=== PATIENT | female | born 1980 | race African-American/Black ===

== ENCOUNTER 2021-05-01 16:43 | Outpatient (CLI) | payer OTHER, SELFPAY ==
[2021-05-01 17:17] LABS: Basophils Percent Auto 0.5 % (0.2-1.2); Eosinophils Absolute Auto 0.2 K/mm3 (0-0.3); Eosinophils Percent Auto 3.5 % (0-4.4); Hematocrit 38.5 % (37.0-47.0); Immature Granulocyte Absolute 0.01 K/mm3 (0.00-0.031); Immature Granulocyte Percent A 0.2 % (0-0.5); Lymphocytes Absolute Auto 2.25 K/mm3 (0.9-3.2); Lymphocytes Percent Auto 39.3 % (18.3-44.2); Mean Corpuscular HGB Conc 28.6 g/dl (32-36); Mean Corpuscular Hemoglobin 23.1 pg (26-34); Mean Corpuscular Volume 80.9 fl (80-100); Mean Platelet Volume 9.4 fl (7.4-10.4); Monocytes Absolute Auto 0.4 K/mm3 (0.1-0.6); Monocytes Percent Auto 6.1 % (2.6-8.5); Neutrophils Absolute Auto 2.9 K/mm3 (1.3-6.7); Neutrophils Percent Auto 50.4 % (45.5-73.1); Platelet Count Result 266 k/mm3 (150-375); Red Blood Count 4.76 M/mm3 (4.2-5.4); Red Cell Distribution Width 20.2 % (11.5-14.5); White Blood Count 5.7 K/mm3 (4.5-10.0)
[2021-05-01 19:00] LABS: Alanine Aminotransferase 13 U/L (4-35); Albumin Level 4.2 g/dL (3.5-5.1); Alkaline Phosphatase 63 U/L (38-126); Anion Gap 9 mmol/L (8-16); Aspartate Amino Transferase 24 U/L (14-36); Bilirubin,Total 0.5 mg/dL (0.2-1.3); Blood Urea Nitrogen 12 mg/dL (7-17); Calcium 9.6 mg/dL (8.4-10.2); Carbon Dioxide 23 mmol/L (22-30); Chloride 105 mmol/L (98-107); Estimated Glomerular Filt Rate > 60; Glucose 86 mg/dL (65-105); Potassium 3.7 mmol/L (3.4-5.0); Sodium 137 mmol/L (137-145)
[2021-05-01 19:12] LABS: Transferrin 315 mg/dL (206-381)
[2021-05-01 19:55] LABS: Iron 27 ug/dL (37-170)
[2021-05-01 20:04] LABS: Percent Iron Saturation 7 % (20-50)
[2021-05-01 20:08] LABS: Folic Acid 16.3 ng/mL (2.76->20)
== END 2021-05-01 16:44 | disposition home or self-care (01) ==
PROVIDERS: PCP Nurse Practitioner Family; Visit Provider Internal Medicine Hematology & Oncology
DX: D50.0 Iron deficiency anemia secondary to blood loss (chronic) (principal)
CPT/HCPCS: 36415; 80053; 82607; 82728; 82746; 83540; 83550; 84466; 85025

== ENCOUNTER 2022-06-07 08:19 | Outpatient (CLI) | payer OTHER, SELFPAY ==
[2022-06-07 08:35] LABS: Hematocrit 30.3 % (37.0-47.0); Hemoglobin 8.1 g/dL (12.0-15.0)
== END 2022-06-07 08:20 | disposition home or self-care (01) ==
LOC: ANHLAB 08:21
PROVIDERS: Visit Provider Anesthesiology
DX: N93.9 Abnormal uterine and vaginal bleeding, unspecified (principal); D64.9 Anemia, unspecified; Z01.818 Encounter for other preprocedural examination
CPT/HCPCS: 36415; 85014; 85018; 86850; 86900; 86901

== ENCOUNTER 2022-06-09 01:40 | Day surgery (SDC) | payer OTHER, SELFPAY ==
[2022-06-03 17:02] VITALS: BMI 33.9
--- NOTE | 2022-06-03 17:35 | PC.NURSE ---
Report to the Outpatient Waiting Room, entrance under the green pavilion located off [facility], at 0600 on 06-09-22. OR Time: 0730. - You and your visitor will be asked to self-screen and do not enter if you have any COVID symptoms. - Only one visitor and NO children visitors are allowed at this time. - The patient visitor is requested to leave or wait in car when not with patient due to restrictions. - A mask is required within the hospital. Patients may have clear liquids (water, carbonated beverages, clear teas, apple juice) until 3 hours prior to surgery with a maximum of 20 ounces. 0430 - No food from midnight until time of surgery - Infants may have breast milk until 4 hours before surgery, formula 6 hours prior to surgery. - Children will be allowed to drink immediately following surgery. If applicable, please bring a bottle or sippy cup to assist with drinking. Juice, water, soda, and popsicles are readily available. For infants on formula, please bring formula the day of surgery. Pacifiers are allowed. Take the following medications with a SIP of water the morning of surgery: iron, control Medications to discontinue per physician: N/A Please no make-up, nail kazakh, hairspray, perfume, deodorant, or body powder the day of surgery. No jewelry (including any body piercings) or valuables the day of surgery, leave them at home. Please take a shower or bath the night before, or the morning of, surgery with an antibacterial soap. Wear comfortable, loose fitting clothing. Children are encouraged to wear pajamas. - Jewelry must be removed prior to entering the operating room. Rings and piercings that are not removed may be cut off. - The hospital will not accept responsibility for valuables. - Please leave all valuables, including medications, at home the day of surgery. If you are going home after surgery, a licensed emergency detail driver must drive you home. - NO public transportation without another adult. - We recommend that an adult stay with you for 24 hours following discharge. - We also recommend that you do not drive, make important decision, drink alcoholic beverages, or take any drugs that were not prescribed by your health care provider for at least 24 hours after your discharge time. For Pediatric surgeries, we recommend two adults accompany the child home (only one inside the building at this time). Follow any additional instructions given to you from your surgeon. If you or anyone in your household have experienced Covid symptoms in the past week, please notify your surgeon or the nurse liaison at the phone number below for possible testing. Telephone instructions given to Tish Hurtado and asked if any additional questions and then verbalized understanding. Patient advised to call surgeon office or pre surgery nurse liaison [phone] if any additional questions.
--- NOTE | 2022-06-08 19:05 | PM.IMHP ---
H&P: HPI History of Present Illness Date/Time: 06/08/22 19:05 Chief Complaint: Abnormal uterine bleeding Narrative: Tish is a 40yo [id number], who presents for scheduled hysterectomy. Her pap was NILM/HPV neg 05/2022. She had a HSC/D&C 02/2021 (benign path). She had an IUD but it was expelled. She tried DIA's but that made her have headaches and vision changes. She has most recently been on depo-provera and has had 2 shots (last Nov 2021); was due for her 3rd but did not take it because she has nonstop bleeding with passage of quarter sized clots. Throughout this, she has intermittently taken provera (still taking), which has helped to slow the bleeding. But she continues to be anemic (almost required blood transfusion in 2020 due to hgb of 7), her most recent is 11. She has been having cramping on and off and it it interfering with her life and work. She has a h/o BTL and no longer desires to try medical management as nothing has worked for the last 1.5years. She does continue to take iron daily. Review of Systems Review of Systems: All systems reviewed & are unremarkable except as noted in HPI and below PMFSH Past Medical History Medical History Irregular heart beat Irregular periods Surgical History Surgical History H/O gynecological procedure tubal 2007 [facility] D&C -2020 Family History Family History Other Congestive heart disease Social History Social History Smoking status: Never smoker Second hand tobacco smoke exposure: No Alcohol intake: current Alcohol use details: occasionally Substance use: never Substance use type: does not use Gender identity (if verbalized by the patient): Female Spiritual care concerns: No Meds Home Medications and Allergies Home Medications Medication Instructions Recorded Confirmed Type medroxyprogesterone 10 mg tablet 10 mg PO BID 05/29/22 06/03/22 History (Provera) ferrous sulfate 325 mg (65 mg 325 mg PO BID 06/03/22 06/03/22 History iron) tablet (FeroSul) Allergies Allergy/AdvReac Type Severity Reaction Status Date / Time No Known Allergies Allergy Verified 06/03/22 16:59 Exam Const: General: cooperative, comfortable and no acute distress Nutritional Appearance: obese Resp: Effort & Inspection: normal respiratory effort Cardio: Rate: regular rate GI: Inspection: normal to inspection GI Palp: No abdominal tenderness and Yes Soft to palpation : Other: deferred to OR Skin: General skin exam: normal color Neuro: General: patient oriented x3 Extrem: General: normal to inspection Psych: Appearance: grossly normal Affect: normal affect Attitude: cooperative Assessment and Plan Assessment and plan (1) Abnormal uterine bleeding: Code(s): N93.9 - Abnormal uterine and vaginal bleeding, unspecified Status: Acute Assessment and Plan: - Endometrial sampling and pap normal and UTD - Pt has failed medical management - Proceed with robotic assisted total laparoscopic hysterectomy, bilateral salpingectomy, with cystoscopy - Risks and benefits explained in detail and all questions answered
[2022-06-09] VITALS (10 sets, daily range): BP systolic 121–158; BP diastolic 76–98; PULSE 60–82; RESP 14–27; TEMP 36.2–37.6; O2SAT 94–100
[2022-06-09] MEDS: LACTATED RINGERS 1,000 ML 30 ML IV CONT ×2 (06:40→09:28)
--- NOTE | 2022-06-09 06:43 | P.PNAN_ITS ---
Anes - Initial Pre Proc Eval Procedure: Operation Date: 06/09/22 07:30 Proposed Procedures p Robotic Assisted Total Laparoscopic Hysterectomy - Manuela Lainez MD Date/Time: 06/09/22 06:43 Surgeon: Manuela Lainez MD Pre Op Diagnosis: Abnormal uterine bleeding Patient Data Age: 41 Gender: F Height: 1.83 m Weight: 113.4 kg Allergies Allergy/AdvReac Type Severity Reaction Status Date / Time No Known Allergies Allergy Verified 06/09/22 06:16 Home Medications Medication Instructions Recorded Confirmed Type medroxyprogesterone 10 mg tablet 10 mg PO BID 05/29/22 06/09/22 History (Provera) ferrous sulfate 325 mg (65 mg 325 mg PO BID 06/03/22 06/09/22 History iron) tablet (FeroSul) Patient hx anesthesia problems: none Family hx anesthesia problems: none Results Review: All pre-operative results and documents have been reviewed as part of the pre- operative evaluation. [facility] Past Medical History Medical History Irregular heart beat Irregular periods Surgical History Surgical History [facility] Family History Family History Other Congestive heart disease Social History Social History Smoking status: Never smoker Second hand tobacco smoke exposure: No Alcohol intake: never Alcohol use details: occasionally Substance use: never Substance use type: does not use Living arrangements: with family Gender identity (if verbalized by the patient): Female Spiritual care concerns: No Anes - Eval Final PreProcedure Day of Procedure 06/09/22 06:43 Patient weight: obese Heart: regular rate and rhythm Lungs: clear to auscultation Airway: Mallampati scale class II Neurological: alert and oriented Last oral intake: >/= 8 hours ASA classification: II Emergent: no Anesthetic plan: proceed Anesthesia type and monitoring: general ETT and standard monitoring Results Review: All pre-operative results and documents have been reviewed as part of the pre- operative evaluation. Informed Consent: The patient's anesthetic plan and its attendant risks and benefits were discussed with the patient/family/POA. Questions were solicited and answers provided to the satisfaction of the patient/family/POA.
--- NOTE | 2022-06-09 07:04 | WPDHPUPDATE1 ---
History and Physical Update Update Date/Time: 06/09/22 07:04 History and Physical has been reviewed, including an updated exam of the patient. There are NO changes in the patient's condition. Risks, benefits, and alternatives have been discussed and questions answered. Patient agrees to proceed with procedure.
[2022-06-09] MEDS: ACETAMINOPHEN 500 MG TABLET 1000 MG PO ×2 (07:16→20:49)
[2022-06-09] MEDS: KETOROLAC 15 MG/ML VIAL (*BKC) IV PUSH (07:20)
[2022-06-09] MEDS: ceFAZolin 2 GM/D5W 50 ML 2 GM/50 ML BAG IVPB (07:29)
[2022-06-09] MEDS: LIDO 1%/EPINEPHRINE 1:100,000 50 ML VIAL 30 ML INFILTRATE (08:09)
--- NOTE | 2022-06-09 09:19 | W.PM.PROC2 ---
Procedure Note - Detailed Date of Procedure 06/09/22 Pre-op Diagnosis Abnormal uterine bleeding Post-op Diagnosis Same Procedure Performed Robotic assisted total laparoscopic hysterectomy with bilateral salpingectomy and cystoscopy Surgeon Manuela Lainez MD Telecommunications Administrator Arley Anesthesia General Findings Uterus 8cm, normal cervix, prior surgical history of tubal ligation; normal ovaries bilaterally, good hemostasis at end of case. Normal bladder that filled without difficultly; bilateral ureteral jets noted. Description of Procedure Tish was taken to the operating room where she was placed under general anesthesia without issues. She received 2 g Ancef.? She was then prepped and draped in the usual sterile fashion? in the dorsal lithotomy position with her legs in low Miguel stirrups and her arms tucked at her side.? A time-out was performed.? My attention was turned down below where a stringer catheter was placed. A bivalve speculum was placed within the vagina. The cervix was easily identified and the anterior lip of the cervix was grasped with single-tooth tenaculum.? The uterus was then sounded to 8cm.? The cervix was serially dilated to allow for the BRANDI uterine manipulator; which was placed w/o issue (6cm tip with 3cm cervical ring).? My gloves were changed and attention was then turned to the abdomen. A supraumbilical incision was made, and a 5 mm trocar was placed under direct visualization.? Once intra-abdominal placement was confirmed, the abdomen was insufflated with carbon dioxide gas.? An abdominal survey was performed and the above findings were noted.? Two additional ports were placed on the right side and one port on the left side under direct visualization without issues.? The umbilical port was switched out for a robotic port under direct visualization.? The patient was then placed in deep Trendelenburg, with the legs slightly lowered.? The robot was then docked. The instruments were placed intra-abdominally under direct visualization.? I then un-scrubbed and went to the robotic console. I then started my hysterectomy on the right side. The ureter was easily identified transperitoneally and well out of the surgical field. The fallopian tube was elevated and the mesosalpinx was coagulated and transected.? The round ligament was clamped, coagulated, and transected. The uterine ovarian artery was then serially clamped, coagulated, and transected with good hemostasis. The broad ligament was then dissected anteriorly and posteriorly skeletonizing the uterine artery.? The bladder flap was then developed on the right side and carried around the left, anteriorly.? The uterine artery was then serially clamped and coagulated.? Once the vessel was adequately coagulated, it was then transected with good hemostasis. The same procedure was then performed on the left side without complications. ? The uterus was noted to be devascularized.? The bladder flap was verified out of the surgical field and the colpotomy was started anteriorly and continued in a clockwise fashion until the uterus was released.? The uterus was removed from the abdomen via the vagina without complications.? The vaginal cuff had small bleeders that were made hemostatic without complications.? The vaginal cuff was then reapproximated using a 0 V lock suture. The pelvis was then irrigated and suctioned free of all clots and debris.? Good hemostasis was noted. All instruments were removed from the abdomen and the robot was undocked.? I then scrubbed back in and verified that the cuff was intact without any defects.? The Stringer catheter was then removed.? The cystoscope was placed within the bladder, which filled without difficulty.? Bilateral ureteral efflux was noted.? The bladder was examined and no defects or abnormalities were visualized.? The bladder was drained.? The cystoscope was removed. The stringer catheter was replaced under aseptic techique. The 4 laparoscopic incisions were reapproximated using 4-0
[2022-06-09] MEDS: fentaNYL CITRATE INJ (*CRX) 100 MCG/2 ML VIAL 25 MCG IV PUSH ×3 (10:00→10:10)
[2022-06-09] MEDS: DEXTROSE 5%/0.45% SOD CHL 1,000 ML 75 ML IV CONT (11:33)
[2022-06-09] MEDS: KETOROLAC 30 MG/ML VIAL (*BKC) IV PUSH ×2 (11:34→17:25)
[2022-06-09] MEDS: FERROUS SULFATE 324 MG TABLET PO (17:26)
[2022-06-09] MEDS: DOCUSATE SODIUM 100 MG CAPSULE PO (17:26)
[2022-06-09] MEDS: oxyCODONE HCL (*CRX) 5 MG TAB IR 10 MG PO (20:47)
[2022-06-10] VITALS (7 sets, daily range): BP systolic 147–160; BP diastolic 92–112; PULSE 66–80; RESP 16–18; TEMP 36.6–37.1; O2SAT 98–100
[2022-06-10] MEDS: IBUPROFEN 600 MG TABLET PO ×3 (00:13→12:30)
[2022-06-10] MEDS: ACETAMINOPHEN 500 MG TABLET 1000 MG PO ×2 (03:41→09:21)
[2022-06-10] MEDS: oxyCODONE HCL (*CRX) 5 MG TAB IR PO (03:42)
[2022-06-10 04:29] LABS: Basophils Percent Auto 0.4 % (0.2-1.2); Eosinophils Percent Auto 0.1 % (0-4.4); Hemoglobin 8.1 g/dL (12.0-15.0); Immature Granulocyte Absolute 0.03 K/mm3 (0.00-0.031); Immature Granulocyte Percent A 0.4 % (0-0.5); Lymphocytes Absolute Auto 1.81 K/mm3 (0.9-3.2); Mean Corpuscular Hemoglobin 18.9 pg (26-34); Mean Corpuscular Volume 69.9 fl (80-100); Mean Platelet Volume 9.6 fl (7.4-10.4); Monocytes Absolute Auto 0.4 K/mm3 (0.1-0.6); Monocytes Percent Auto 5.6 % (2.6-8.5); Neutrophils Absolute Auto 5.6 K/mm3 (1.3-6.7); Neutrophils Percent Auto 70.5 % (45.5-73.1); Platelet Count Result 273 k/mm3 (150-375); Red Blood Count 4.29 M/mm3 (4.2-5.4); Red Cell Distribution Width 21.9 % (11.5-14.5); White Blood Count 7.9 K/mm3 (4.5-10.0)
[2022-06-10 04:39] LABS: Anion Gap 8 mmol/L (8-16); Blood Urea Nitrogen 7 mg/dL (7-17); Calcium 8.7 mg/dL (8.4-10.2); Carbon Dioxide 22 mmol/L (22-30); Chloride 103 mmol/L (98-107); Estimated CRCL calculation 113 ml/min; Estimated Glomerular Filt Rate > 60; Glucose 99 mg/dL (65-110); Potassium 3.5 mmol/L (3.4-5.0); Sodium 133 mmol/L (137-145)
--- NOTE | 2022-06-10 07:03 | PM.GYNPNOP ---
ER NURSE - A/P Assessment and plan (1) S/P laparoscopic hysterectomy: Code(s): Z90.710 - Acquired absence of both cervix and uterus Status: Acute Postoperative Procedures: Procedures Operation Date: 06/09/22 07:30 Actual Procedure Side Surgeon p Robotic Assisted Total Laparoscopic Hysterectomy Bilateral Manuela Lainez MD Postoperative day: 1 Postoperative status: doing well Postoperative plan: routine post-op care, discharge and other (will start adalat 30mg for persistent HTN) Time Spent With Patient Time: Total time spent is greater than 50% in coordination of care (as documented) at patient's floor/unit and/or counseling patient: Time with patient: less than 15 minutes ER NURSE- PN:Subj Post-Op Subjective Date/time seen: 06/10/22 07:03 Interval history: POD#1 Tish reports doing well overnight; got some sleep. She had elevated blood pressures throughout the night; denies LINDSAY, CP, SOB, or vision changes. She has tolerated clears and crackers. She will order breakfast. She has ambulated, voided, and passed gas. She repots her pain is well controlled on PO meds. No signs of anemia. Review of Systems Constitutional: Constitutional: Denies chills, Denies fever(s) and Denies headache(s) Eyes: Eyes: Denies change in vision ENT: Denies dizziness and Denies headache(s) Cardiovascular: Cardiovascular: Denies chest pain, Denies palpitations and Denies dyspnea Respiratory: Respiratory: Denies cough and Denies dyspnea Gastrointestinal: Gastrointestinal: Denies nausea and Denies vomiting Genitourinary: Genitourinary: Denies abnormal vaginal bleeding Comments: normal bleeding Neurologic: Denies dizziness and Denies headache(s) Endocrine: Endocrine: Denies palpitations Exam Const: General: cooperative, comfortable and no acute distress Nutritional Appearance: obese Orientation/consciousness: patient oriented x3 Resp: Effort & Inspection: normal respiratory effort Auscultation: clear to auscultation bilaterally Cardio: Rate: regular rate GI: Inspection: non-distended and incision (covered dermabond) GI Palp: Yes abdominal tenderness (appropriate) and Yes Soft to palpation Auscultation: normal bowel sounds Skin: General skin exam: normal color Neuro: General: patient oriented x3 Extrem: General: normal to inspection Psych: Appearance: grossly normal Affect: normal affect Attitude: cooperative ER NURSE - PN: Obj Data Vital Signs Vital Signs: Vital Signs - 24 hr 06/09/22 09:28 06/09/22 09:45 06/09/22 10:00 Temperature 97.2 F L Pulse Rate 82 63 65 Respiratory Rate 14 23 H 27 H Blood Pressure 121/80 139/87 136/90 Pulse Oximetry 96 100 95 Oxygen Delivery Simple Face Mask Simple Face Mask Room Air Oxygen Flow Rate 6 6 06/09/22 10:15 06/09/22 10:30 06/09/22 10:45 Temperature Pulse Rate 63 60 64 Respiratory Rate 19 20 18 Blood Pressure 122/76 126/85 124/83 Pulse Oximetry 94 95 95 Oxygen Delivery Room Air Room Air Room Air Oxygen Flow Rate 06/09/22 11:15 06/09/22 11:40 06/09/22 20:25 Temperature 97.4 F L 99.7 F H Pulse Rate 65 65 78 Respiratory Rate 18 18 18 Blood Pressure 145/86 H 158/90 H Pulse Oximetry 94 94 100 Oxygen Delivery Room Air Oxygen Flow Rate 06/09/22 20:25 06/10/22 00:15 06/10/22 00:15 Temperature 98.5 F Pulse Rate 78 66 66 Respiratory Rate 16 16 16 Blood Pressure 147/98 H Pulse Oximetry 100 98 98 Oxygen Delivery Room Air Room Air Oxygen Flow Rate 06/10/22 04:21 06/10/22 04:21 06/10/22 04:37 Temperature 98.5 F 98.5 F Pulse Rate 72 72 72 Respiratory Rate 16 16 16 Blood Pressure 152/100 H 152/100 H Pulse Oximetry 100 100 100 Oxygen Delivery Room Air Room Air Oxygen Flow Rate 06/10/22 04:25 Temperature Pulse Rate Respiratory Rate Blood Pressure 150/96 H Pulse Oximetry Oxygen Delivery Oxygen Flow Rate Intake/Output Intake/Output: Intake & Output 06/07/22 06/08/22 06/09/22 06/10/22 23:59 2
--- NOTE | 2022-06-10 07:51 | P.PNAN_ITS ---
Anes - Prog Note Post-Op Date/Time: 06/10/22 07:51 Cardiovascular status: normal Respiratory status: normal Airway patency: baseline Mental status: baseline Post-Op hydration status: normal Vital Signs: Last Vital Signs Temp 37.1 C 06/10/22 07:15 Pulse 67 06/10/22 07:15 Resp 16 06/10/22 07:15 BP 159/112 H 06/10/22 07:15 Pulse Ox 100 06/10/22 07:15 O2 Del Method Room Air 06/10/22 04:37 O2 Flow Rate 6 06/09/22 09:45 Pain Score (VAS): 10/28 I/O: Intake & Output 06/09/22 06/09/22 06/10/22 15:59 23:59 07:59 Intake Total 2800 811 675 Output Total 1175 1250 300 Balance 1625 -439 375 Laboratory Tests 06/10/22 03:40 06/10/22 03:40 06/10/22 06/10/22 03:40 03:40 WBC 7.9 RBC 4.29 Hgb 8.1 L Hct 30.0 L MCV 69.9 L MCH 18.9 L MCHC 27.0 L RDW 21.9 H Plt Count 273 MPV 9.6 Immature Gran % (Auto) 0.4 Neut % (Auto) 70.5 Lymph % (Auto) 23.0 [place] % (Auto) 5.6 Eos % (Auto) 0.1 Baso % (Auto) 0.4 Lymph # (Auto) 1.81 [place] # (Auto) 0.4 Eos # (Auto) 0.0 Baso # (Auto) 0.0 Abs Immat Gran (auto) 0.03 Absolute Neuts (auto) 5.6 Absolute Nucleated RBC 0.0 Nucleated RBC % 0.0 Sodium 133 L Potassium 3.5 Chloride 103 Carbon Dioxide 22 Anion Gap 8 BUN 7 D Creatinine 0.80 Estim Creat Clear Calc 113 Estimated GFR > 60 Glucose 99 Calcium 8.7 Post-procedural complaints: none Patient Feedback: Patient satisfied with anesthetic care.
[2022-06-10] MEDS: NIFEdipine 30 MG TAB.ER.24 PO (07:56)
[2022-06-10] MEDS: FERROUS SULFATE 324 MG TABLET PO (09:21)
[2022-06-10] MEDS: DOCUSATE SODIUM 100 MG CAPSULE PO (09:21)
== END 2022-06-10 13:42 | disposition home or self-care (01) ==
LOC: ANHSURGERY 06:03 → ANHOB2 11:02
PROVIDERS: PCP Nurse Practitioner Family; Visit Provider Obstetrics & Gynecology
PROC: (CPT 58552; principal; 2022-06-09 07:30)
DX: N93.8 Other specified abnormal uterine and vaginal bleeding (principal); D64.9 Anemia, unspecified; D25.9 Leiomyoma of uterus, unspecified
CPT/HCPCS: 58552; 36415; 80048; 85025; 88307; 99199; A9270; J0360; J0690; J1100; J1170; J1885; J2250; J2405; J2704; J2710; J3010; J7030; J7120